=== PATIENT | male | born 1955 | race Caucasian/White ===

== ENCOUNTER 2022-06-08 17:02 | Emergency (ER) | payer MEDICARE, OTHER, SELFPAY ==
[2022-06-08] VITALS (9 sets, daily range): BP systolic 152–191; BP diastolic 76–97; PULSE 96–106; RESP 16–34; TEMP 37.6; O2SAT 92–96; BMI 47.5
--- NOTE | 2022-06-08 17:56 | DI.RAD.S_ITS ---
PROCEDURE: XR CHEST 2V INDICATIONS: Covid + SOB TECHNIQUE: 2 views of the chest were acquired. COMPARISON: None. FINDINGS: Surgical changes and devices: None. Lungs and pleura: Lungs are clear. No pleural effusions or pneumothorax. Mediastinum: Mediastinal contours are normal. Heart size is normal. Bones and chest wall: No suspicious bony abnormalities. Soft tissues appear unremarkable. IMPRESSION: No acute cardiopulmonary findings Approved by: Franko Mcarthur M.D. on 06/08/2022 at 17:41
--- NOTE | 2022-06-08 17:56 | ED.SOB ---
HPI - SOB/Dyspnea <AFTAB Kern - Last Filed: 06/08/22 19:05> General Chief Complaint: Shortness of Breath/Dyspnea Stated Complaint: covid+/sob/cough/sore throat Time Seen by Provider: 06/08/22 17:34 Source: patient Mode of arrival: Ambulatory Limitations: no limitations History of Present Illness HPI Narrative: 67-year-old male, never smoker, presents to the emergency department with complaints feeling weak with difficulty breathing and sore throat x1 day. History of KELLY and uses a CPAP at night. Patient was around family members who work in the hospital last week and and felt poorly 2 days afterwards, that was resolved with Tylenol. Patient started feeling poorly again last night and woke up this morning feeling weak with difficulty breathing. Patient tested positive for COVID-19 at around 11:00 a.m. today. Patient is obese, with KELLY, and no other relevant medical history. Patient would like to be prescribed Paxlovid. Related Data Previous Rx's Medication Instructions Recorded nirmatrelvir 300 mg (150 mg x See Rx Instructions PO .COMPLEX 06/08/22 2)-ritonavir 100 mg tablet (EUA) Covid-19 #30 tabs (Paxlovid 300 mg () Allergies Allergy/AdvReac Type Severity Reaction Status Date / Time No Known Drug Allergies Allergy Verified 06/08/22 19:00 Review of Systems <AFTAB Kern - Last Filed: 06/08/22 19:05> Review of Systems Narrative: Narrative: GENERAL: Denies chills, fever, sweats. See HPI HEENT: Denies sinus pain, ear pain, difficulty swallowing, dizziness. Endorses sore throat and occasional cough. RESPIRATORY: Denies wheezing, sputum. Endorses difficulty breathing. CARDIOVASCULAR: Denies chest pain, palpitations, edema. GASTROINTESTINAL: Denies nausea, vomiting, abdominal pain, diarrhea, constipation. : Denies dysuria, frequency, incontinence, hematuria, urinary retention, flank pain. MSK: Denies joint pain, or bony pain. Endorses body weakness. SKIN: Denies rash, skin lesions, or pruritis. NEUROLOGIC: Denies dizziness, headache, numbness, confusion. PSYCHIATRIC: No concerning psychosocial issues. Patient History <AFTAB Kern - Last Filed: 06/08/22 19:05> Social History Smoking Status: Never smoker Smoking Status: Never smoker alcohol intake frequency: holidays/special occasions only Substance Use Type: does not use Exam <AFTAB Kern - Last Filed: 06/08/22 19:05> Narrative Exam Narrative: Exam Narrative: GENERAL: This is a well-nourished, well-developed patient, in mild distress HEAD: Atraumatic. Normocephalic. EYES: Pupils equal round and reactive. Extraocular motions intact. No scleral icterus, injection or drainage. ENT: Nose without bleeding, purulent drainage. Throat with mild erythema, no tonsillar hypertrophy or exudate. Airway patent. NECK: Trachea midline. No JVD or lymphadenopathy. Nontender. CARDIOVASCULAR: Regular rate and rhythm without murmurs, peripheral pulses intact, cap refill <2 sec. RESPIRATORY: Breath sounds equal and clear bilaterally. No wheezes, rales, or rhonchi. Increased respiratory effort. No accessory muscle use. GASTROINTESTINAL: Obese. Abdomen soft, non-tender, nondistended without guarding or rebound. No suprapubic pain. MSK: Moves all extremities. Normal range of motion, no clubbing or edema. Neurovascularly intact. NEURO: A&O x 3. SKIN: Warm, dry, no rashes or lesions noted. Initial Vital Signs Initial Vital Signs: Vital Signs Pulse Rate 98 H 06/08/22 17:13 Pulse Oximetry 96 06/08/22 17:13 Reviewed <Lara Maria MD - Last Filed: 06/09/22 04:40> Initial Vital Signs Initial Vital Signs: Vital Signs Pulse Rate 98 H 06/08/22 17:13 Pulse Oximetry 96 06/08/22 17:13 Course <AFTAB Kern - Last Filed: 06/08/22 19:05> Orders Ordered: ED Orders 06/08/22 17:56 XR chest 2V Stat COVID19 -Nasal RAPID/Pre-Proc Stat 06/08/22 18:25 Complete Blood Count AUTO DIFF Stat Comprehensive Metabolic Panel Stat Lipase Stat Magnesium Stat Troponin & CK Cardiac Panel Stat Vital Signs Vital signs: Vital Signs - 8 hr 06/08/22 17:20 Temperature 99.7 F H Pulse Rate 106 H Respiratory Rate 28 H Blood Pressure 187/97 H Pulse Oximetry 95 Oxygen Delivery Method Room Air <Lara Maria MD - Last Filed: 06/09/22 04:40> Orders Ordered: ED Orders 06/08/22 17:56 XR chest 2V Stat COVID19 -Nasal RAPID/Pre-Proc Stat 06/08/22 18:25 Complete Blood Count AUTO DIFF Stat Comprehensive Metabolic Panel Stat Lipase Stat Magnesium Stat Troponin & CK Cardiac Panel Stat Vital Signs Vital signs: Vital Signs - 8 hr 06/08/22 17:20 Temperature 99.7 F H Pulse Rate 106 H Respiratory Rate 28 H Blood Pressure 187/97 H Pulse Oximetry 95 Oxygen Delivery Method Room Air MDM - SOB/Dyspnea <AFTAB Kern - Last Filed: 06/08/22 19:05> Differential Diagnosis Differential diagnosis: Likely other (Covid-19) Lab Data Result diagrams: 06/08/22 18:25 06/08/22 18:25 Labs: Lab Results 06/08/22 06/08/22 06/08/22 Range/Units 18:25 18:25 18:25 WBC 14.2 H (4.5-11.0) X10^3/uL RBC 5.03 (4.5-5.9) X10^6/uL Hgb 15.1 (13.5-17.5) g/dL Hct 44.6 (41-53) % MCV 88.8 (80-100) fL MCH 30.1 (26-34) PG MCHC 33.9 (30-36) % RDW 14.1 (11.6-14.8) % Plt Count 242 (150-400) X10^3/uL Neut % (Auto) 73.6 (50-75) % Lymph % (Auto) 10.4 L (25-40) % [place] % (Auto) 15.1 H (3-14) % Eos % (Auto) 0.3 L (2-4) % Baso % (Auto) 0.6 (0-2) % Neut # (Auto) 47036 H (9531-7953) /uL Lymph # (Auto) 1500 (8307-8812) /uL [place] # (Auto) 2200 H (0-900) /uL Eos # (Auto) 0 (0-450) /uL Baso # (Auto) 100 (0-100) /uL Sodium 135 L (137-145) mmol/L Potassium 3.9 (3.4-5.1) mmol/L Chloride 99 (98-107) mmol/L Carbon Dioxide 29 (22-32) mmol/L BUN 8 L (9-20) mg/dL Creatinine 0.77 (0.66-1.25) mg/dL Estimated GFR > 60 (>60) mL/min BUN/Creatinine Ratio 10.4 (6-22) Glucose 121 H (80-110) mg/dL Calcium 8.7 (8.4-10.2) mg/dL Magnesium 2.0 (1.6-2.3) mg/dL Total Bilirubin 0.5 (0.2-1.3) mg/dL AST 34 (17-59) IU/L ALT 44 (<50) IU/L Alkaline Phosphatase 110 (38-126) U/L Total Creatine Kinase 99 (55-170) U/L CK-MB (CK-2) TNP CK-MB (CK-2) Rel Index TNP Troponin I < 0.012 (0.01-0.034) ng/mL Total Protein 7.4 (6.3-8.2) g/dL Albumin 4.4 (3.5-5.0) g/dL Globulin 3.0 (1.7-4.1) g/dL Albumin/Globulin Ratio 1.5 (1.0-2.8) Lipase 61 (23-300) U/L SARS-CoV-2 (PCR) TNP Imaging Data Chest x-ray: Radiologist's Impression: [address] [address] XRay Report Signed Patient: Cheo Baker MR#: [id number] : 1955 Acct:[id number] Age/Sex: 67 / M Date of Service: 06/08/22 Loc: ED Accession Number: [id number] ?? Procedure: XR chest 2V Ordering Provider: Hugh Garcia MD PROCEDURE:? XR CHEST 2V ? INDICATIONS:? Covid + SOB ? TECHNIQUE:? 2 views of the chest were acquired.? ? COMPARISON:? None. ? FINDINGS:? ? Surgical changes and devices:? None.? ? Lungs and pleura:? Lungs are clear.? No pleural effusions or pneumothorax.? ? Mediastinum:? Mediastinal contours are normal.? Heart size is normal.? ? Bones and chest wall:? No suspicious bony abnormalities.? Soft tissues appear unremarkable.? ? IMPRESSION:? No acute cardiopulmonary findings ? ? ? Approved by: Franko Mcarthur M.D. on 06/08/2022 at 17:41? [facility] Narrative Medical decision making narrative: 67-year-old male, with history of KELLY obesity, presents to emergency department respiratory difficulty. COVID positive. Chest x-ray is negative. Labs reveal normal kidney function and elevated WBC. No medical history other than KELLY and obesity and not taking any medications at this time. Screening checklist used and no contraindications for Paxlovid prescription. Will prescribe Paxlovid and discharge home. Discussed return precautions and plan of care with patient, who was agreeable with course of action. <Lara Maria MD - Last Filed: 06/09/22 04:40> Lab Data Labs: Lab Results 06/08/22 06/08/22 06/08/22 Range/Units 18:25 18:25 18:25 WBC 14.2 H (4.5-11.0) X10^3/uL RBC 5.03 (4.5-5.9) X10^6/uL Hgb 15.1 (13.5-17.5) g/dL Hct 44.6 (41-53) % MCV 88.8 (80-100) fL MCH 30.1 (26-34) PG MCHC 33.9 (30-36) % RDW 14.1 (11.6-14.8) % Plt Count 242 (150-400) X10^3/uL Neut % (Auto) 73.6 (50-75) % Lymph % (Auto) 10.4 L (25-40) % [place] % (Auto) 15.1 H (3-14) % Eos % (Auto) 0.3 L (2-4) % Baso % (Auto) 0.6 (0-2) % Neut # (Auto) 95898 H (3743-6657) /uL Lymph # (Auto) 1500 (2131-8878) /uL [place] # (Auto) 2200 H (0-900) /uL Eos # (Auto) 0 (0-450) /uL Baso # (Auto) 100 (0-100) /uL Sodium 135 L (137-145) mmol/L Potassium 3.9 (3.4-5.1) mmol/L Chloride 99 (98-107) mmol/L Carbon Dioxide 29 (22-32) mmol/L BUN 8 L (9-20) mg/dL Creatinine 0.77 (0.66-1.25) mg/dL Estimated GFR > 60 (>60) mL/min BUN/Creatinine Ratio 10.4 (6-22) Glucose 121 H (80-110) mg/dL Calcium 8.7 (8.4-10.2) mg/dL Magnesium 2.0 (1.6-2.3) mg/dL Total Bilirubin 0.5 (0.2-1.3) mg/dL AST 34 (17-59) IU/L ALT 44 (<50) IU/L Alkaline Phosphatase 110 (38-126) U/L Total Creatine Kinase 99 (55-170) U/L CK-MB (CK-2) TNP CK-MB (CK-2) Rel Index TNP Troponin I < 0.012 (0.01-0.034) ng/mL Total Protein 7.4 (6.3-8.2) g/dL Albumin 4.4 (3.5-5.0) g/dL Globulin 3.0 (1.7-4.1) g/dL Albumin/Globulin Ratio 1.5 (1.0-2.8) Lipase 61 (23-300) U/L SARS-CoV-2 (PCR) TNP Discharge Plan Departure Patient Disposition: Home Clinical Impression: COVID-19 Instructions: DI for COVID-19 (Suspected or Confirmed ) Activity Restrictions/Additional Instructions: *You have been diagnosed with Covid-19. You were evaluated in the emergency department (ED) with symptoms concerning for COVID-19. While the diagnosis may feel scary, most cases resolve on their own without hospitalization. Certain high risk people are treated with medications to reduce their risk of serious symptoms. At this time, we feel that you are safe to go home. Steps to take at home to care for yourself: ? Get lots of rest and stay hydrated by drinking plenty of fluids. ? You can take acetaminophen (eg, Tylenol) or ibuprofen (eg, Advil, Motrin) for fevers or body aches. ? If you have questions, call your primary care doctor, contact your local health department, or visit the CDC?s website at gov/coronavirus. ? Speak with your primary care doctor within two weeks to discuss a plan to follow up. How to avoid spreading the virus to others: ? Stay at home, except if seeking medical care. ? Cover your coughs (with a tissue or in your elbow) and avoid touching your face unnecessarily. ? Wash your hands often (using soap and water for 20 seconds) to decrease your risk of infecting others. ? Try to avoid close contact with others in your home, including pets. If possible, use a different bathroom, and sleep in a separate room. If you must be near others, be sure everyone wears a face mask and wash your hands before interacting with them. ? If a test was sent and is positive, your local health department may contact you. Follow their directions about when to go back to work or school. ? If you were not tested, you may stop quarantine 10 days after the start of your symptoms, as long as your fever has been completely gone (without using medications) for at least 24 hours and your other symptoms are improving. ? Vaccination against COVID-19 can reduce your risk of reinfection. If you tested negative for COVID-19, you may get the vaccine as soon as possible. If you tested positive for COVID-19, you should still get a vaccine once allowed by your health department. If you or those around you are concerned about COVID-19, call your primary care doctor for advice about steps to take. Your health system may have specific locations for testing if you are not extremely sick. This lowers the risk that you could catch a virus or pass it on in the ED waiting room. Speak to your doctor or come back to the ED for new or worsening symptoms, such as severe headache, confusion, chest pain, difficulty breathing, or vomiting to the point that you cannot drink fluids. Review medication inserts for side effects and call the ED if you have any questions about the medications or care you received. *What to do: *Please continue to take your regular medications as directed. [x ] New medication prescriptions sent to your pharmacy: [[facility] in [place] tomorrow morning] [ ] New medication written as a paper prescription [ ] No new medications given *Please follow up with your primary care provider in 2-3 days, call for an appointment. Let them know you were seen in the Emergency Department and that we ask that you be seen in follow up. We will electronically transmit a record of today's note if your PCP is in our system *If you do not have a primary care provider please contact the [facility] Resource line at [phone]. They will ask some questions about your medical history and help get you set up with a doctor in the community. ? Return to ER if you should have any new, worsening or concerning symptoms, such as worsening pain, severe headache, confusion, chest pain, difficulty breathing, fever greater than 101 F, shaking chills, persistent vomiting to the point that you cannot drink fluids, or other new or worsening symptoms. Prescriptions: New Paxlovid (EUA) 150 mg x 2- 100 mg tablet See Rx Instructions .ROUTE .COMPLEX Qty: 30 0RF Rx Instructions: take TWO 150 mg tablets of nirmatrelvir with ONE 100 mg tablet of ritonavir twice daily for 5 days Referrals: Miscellaneous,Doctor, [Primary Care Provider] - Visit Report Forms: Patient Portal/API <Lara Maria MD - Last Filed: 06/09/22 04:40> [facility] I was immediately available in the department for consultation throughout this patient's visit. I agree with documentation as above. Lara Maria MD
[2022-06-08 18:32] LABS: Add Manual Diff / Slide Review NO; Basophils Absolute Auto 100 /uL (0-100); Basophils Percent Auto 0.6 % (0-2); Eosinophils Absolute Auto 0 /uL (0-450); Eosinophils Percent Auto 0.3 % (2-4); Hematocrit 44.6 % (41-53); Hemoglobin 15.1 g/dL (13.5-17.5); Lymphocytes Absolute Auto 1500 /uL (1100-4500); Lymphocytes Percent Auto 10.4 % (25-40); Mean Corpuscular HGB Conc 33.9 % (30-36); Mean Corpuscular Hemoglobin 30.1 PG (26-34); Mean Corpuscular Volume 88.8 fL (80-100); Monocytes Absolute Auto 2200 /uL (0-900); Monocytes Percent Auto 15.1 % (3-14); Neutrophils Absolute Auto 10500 /uL (1500-7000); Neutrophils Percent Auto 73.6 % (50-75); Platelet Count 242 X10^3/uL (150-400); Red Blood Cell Count 5.03 X10^6/uL (4.5-5.9); Red Cell Distribution Width 14.1 % (11.6-14.8); White Blood Cell Count 14.2 X10^3/uL (4.5-11.0)
[2022-06-08 18:47] LABS: Alanine Aminotransferase 44 IU/L (<50); Albumin 4.4 g/dL (3.5-5.0); Albumin Globulin Ratio 1.5 (1.0-2.8); Alkaline Phosphatase 110 U/L (38-126); Aspartate Aminotransferase 34 IU/L (17-59); BUN Creatinine Ratio 10.4 (6-22); Bilirubin Total 0.5 mg/dL (0.2-1.3); Blood Urea Nitrogen 8 mg/dL (9-20); Calcium 8.7 mg/dL (8.4-10.2); Carbon Dioxide 29 mmol/L (22-32); Chloride 99 mmol/L (98-107); Creatine Kinase 99 U/L (55-170); Estimated Glomerular Filt Rate > 60 mL/min (>60); Glucose 121 mg/dL (80-110); HEMOLYSIS < 15 (0-50); Lipase 61 U/L (23-300); Potassium 3.9 mmol/L (3.4-5.1); Sodium 135 mmol/L (137-145); Total Protein 7.4 g/dL (6.3-8.2)
[2022-06-08 18:58] LABS: Troponin I < 0.012 ng/mL (0.01-0.034)
== END 2022-06-08 19:24 | disposition home or self-care (01) ==
PROVIDERS: Emergency Medicine; Emergency Provider Registered Nurse
DX: U07.1 COVID-19 (principal); R06.02 Shortness of breath
CPT/HCPCS: 71046; 80053; 82550; 83690; 83735; 84484; 85025; 93005; 93010; 99281; 99284